=== PATIENT | female | born 1975 | race Caucasian/White ===

== ENCOUNTER 2017-07-18 18:30 | Emergency (ER) | payer BC ==
[~2017-07-18] VITALS: Ht 152.4 cm; Wt 104.5 kg
[~2017-07-18 18:30] MED LIST: BENTYL20 MG PO; HYDROCODON-ACE1 EAC7 PO; MONTELUKAST SOD10 MG PO; NAPROSYN500 MG PO; NORCO 5/3251 TABLET PO; OMEPRAZOLE40 M1 PO; PREPARATION H1 EAC4 PR; SUCRALFATE1 GM/10 ML PO; ULTRAM50 MG PO; ZOFRAN ODT8 MG PO
[2017-07-18 18:42] VITALS: BP 129/89
[2017-07-18] MEDS ORDERED: LORTAB 5-325 M1 EACH PO (20:22)
== END 2017-07-18 21:07 | disposition home or self-care (01) ==
LOC: EME 18:30 → RME 18:30
PROC: 2W3QX1Z Immobilization of Right Lower Leg using Splint (ICD-10-PCS; principal; 2017-07-18)
DX: S92.514A Nondisplaced fracture of proximal phalanx of right lesser toe(s), initial encounter for closed fracture (principal); W22.03XA Walked into furniture, initial encounter; Y92.009 Unspecified place in unspecified non-institutional (private) residence as the place of occurrence of the external cause; I10 Essential (primary) hypertension; Z87.891 Personal history of nicotine dependence
CPT/HCPCS: 73630; 99281; 99283

== ENCOUNTER 2018-03-27 22:36 | Emergency (ER) | payer BC ==
[~2018-03-27] VITALS: Ht 152.4 cm; Wt 111.5 kg
[~2018-03-27 22:36] MED LIST changes: +LORTAB 5-325 M1 EACH PO
[2018-03-27 23:11] LABS: HEMOGLOBIN 12.9 G/DL (11.9-15.5); MCH 29.5 PG (29.0-34.0); MCHC 33.1 G/DL (30.0-36.0); MCV 89.2 FL (83-99); PLATELET COUNT 301 K/uL (156-360); RBC DIS.WIDTH-SD 42.8 % (39-53); RED BLOOD COUNT 4.37 M/uL (3.80-5.20); WHITE BLOOD COUNT 8.8 K/uL (4.1-10.2)
[2018-03-27 23:14] LABS: APPEARANCE CLEAR ((CLEAR)); BILIRUBIN NEGATIVE; BLOOD NEGATIVE; COLOR YELLOW ((YELLOW)); GLUCOSE (STRIP) NEGATIVE; KETONES NEGATIVE; LEUKOCYTES SMALL; NITRITE NEGATIVE; PROTEIN (STRIP) NEGATIVE; SPECIFIC GRAVITY 1.017 (1.000-1.030); UROBILINOGEN 0.2 MG/DL (0.2-1.0)
[2018-03-27 23:18] LABS: BACTERIA 2+ /HPF; EPITHELIAL CELLS 1+ /HPF; MUCUS TRACE /LPF; RED BLOOD CELLS 0-5 /HPF (0-5); UCUL ADDED? YES
[2018-03-27 23:19] LABS: ALBUMIN 4.1 g/dL (3.2-4.8); CHLORIDE 106 mEq/L (99-109); POTASSIUM 3.7 mEq/L (3.7-5.4); SODIUM 142 mEq/L (136-147)
[2018-03-27 23:21] LABS: GLUCOSE 104 mg/dL (70-99); TOTAL PROTEIN 7.4 g/dL (6.4-8.3)
[2018-03-27 23:23] LABS: TOTAL BILIRUBIN 0.2 mg/dL (0.0-1.0)
[2018-03-27 23:25] LABS: ALKALINE PHOSPHATASE 115 IU/L (3-129); CREATININE 0.8 mg/dL (0.6-1.3); GFR ESTIMATE (CALCULATED) > 59 mL/min/
[2018-03-27 23:26] LABS: UREA NITROGEN (BUN) 15 mg/dL (9-23)
[2018-03-27 23:27] LABS: AST (GOT) 30 IU/L (2-34)
[2018-03-27 23:28] LABS: ALT (GPT) 50 IU/L (3-49)
[2018-03-28 00:12] LABS: LIPASE 47 U/L (1.0-51.0)
[2018-03-28 00:18] LABS: QUANTITATIVE HCG 7.4 MIU/ML
[2018-03-28 02:23] LABS: TROP-I INTERPRETATION NEGATIVE; TROPONIN-I < 0.01 ng/mL (0.0-0.30)
[2018-03-28] MEDS ORDERED: ZITHROMAX Z-PA250 MG PO (02:45)
[2018-03-28 02:55] VITALS: BP 168/96
== END 2018-03-28 02:56 | disposition home or self-care (01) ==
LOC: EME 22:36
PROVIDERS: Emergency Medicine
DX: J06.9 Acute upper respiratory infection, unspecified (principal); K21.9 Gastro-esophageal reflux disease without esophagitis; F41.9 Anxiety disorder, unspecified; F32.9 Major depressive disorder, single episode, unspecified; Z90.49 Acquired absence of other specified parts of digestive tract; Z90.710 Acquired absence of both cervix and uterus; Z87.891 Personal history of nicotine dependence; Z88.8 Allergy status to other drugs, medicaments and biological substances; Z91.040 Latex allergy status
CPT/HCPCS: 71046; 80053; 81003; 83690; 84484; 84702; 85027; 87086; 93005; 99281; 99284